=== PATIENT | male | born 1950 | race Caucasian/White ===

== ENCOUNTER → 2021-08-06 | Day surgery (SDC) | payer OTHER ==
[~2021-08-06] MED LIST: AVAPRO75 MG PO; LEFLUNOMIDE20 MG PO; MIRALAX17 GM PO; NAMENDA5 MG PO; NEURONTIN300 MG PO; TOLTERODINE TART4 MG PO; TYLENOL ARTHRI650 MG PO; ULTRAM50 MG PO; ZOLOFT100 MG PO
== END | disposition home or self-care (01) ==
LOC: ADM 08-03 08:45 → CIR.AMB 08:45
PROVIDERS: ATTEND Surgery
DX: K42.0 Umbilical hernia with obstruction, without gangrene (principal); I10 Essential (primary) hypertension; M06.9 Rheumatoid arthritis, unspecified; F32.A Depression, unspecified; F41.9 Anxiety disorder, unspecified; N40.0 Benign prostatic hyperplasia without lower urinary tract symptoms